=== PATIENT | male | born 1965 | race Caucasian/White ===

== ENCOUNTER 2017-08-21 08:27 | Day surgery (SDC) | payer BC ==
[~2017-08-21] VITALS: Ht 175.3 cm; Wt 127.9 kg
[~2017-08-21 08:27] MED LIST: CEPHALEXIN500 MG PO; FLOMAX0.4 MG PO; IBUPROFEN PM C1 EACH PO; LOSARTAN-HCTZ1 EACH PO; NORCO 5-325 TA1 EACH PO; PERCOCET 10-321 EACH PO; PERCOCET 5-3251 EACH PO; ULTRAM50 MG PO; ZOFRAN ODT8 MG PO
--- NOTE | 2017-08-21 10:35 | NUR ---
08/21/17 Tresa5 Sonia Martins 1032-PATIENT ARRIVED TO PACU ON 2L NC O2 SAT 99% PATIENT REACTIVE TO VOICE. ABDOMEN ROUND AND SOFT. LAYING LEFT LATERAL. RR EVEN
--- NOTE | 2017-08-21 11:52 | NUR ---
CALL LIGHT W/IN REACH. ICED WATER GIVEN. SPOUSE @ BS.
--- NOTE | 2017-08-21 13:27 | NUR ---
LE 1305: PT IS UP TO SITTING ON THE EDGE OF THE BED. PATIENT CONTINUES TO BE DROWSY. PATIENT'S SPOUSE REPORTS THIS IS USUAL FOR HIM UPON AWAKENING. PATIENT STANDS @ THE BS AND IS STEADY ON HIS FEET. DC INSTRUCTIONS ARE GIVEN AND PATIENT AND SPOUSE VERBALIZE UNDERSTANDING. PATIENT IS ASSISTED DRESSED BY HIS SPOUSE AND TOLERATES THAT WELL. PATIENT TRANSFERS HIMSELF TO AND THEN TO PERSONAL VEHICLE AND DOES THAT WELL.
--- NOTE | 2017-08-22 08:34 | OR ---
[facility] [address], [place] [address] Signed DATE OF OPERATION: 08/21/2017 SURGEON: Cristel Miller MD PREOPERATIVE DIAGNOSES: 1. Paternal grandfather with colon cancer in his 70s. 2. Two paternal uncles with colon cancer, one in his 50s and the other in his 60s. POSTOPERATIVE DIAGNOSES: 1. 4 mm polyp at cecum. 2. 4 mm polyp at 12 cm. 3. Internal hemorrhoids. PROCEDURE: Colonoscopy with hot biopsy. ESTIMATED BLOOD LOSS: None. INDICATIONS: Anat is a 52-year-old gentleman asked to see me for colonoscopy. He told me his paternal grandfather had colon cancer in his 70s. He had two uncles with colon cancer, one in his 50s, other in his 60s. Anat himself has no lower GI complaints. I gave Mahesh pamphlet in the office on colorectal polyps and cancer as well as colonoscopy. He understands the nature of the test along with the risks including, but not limited to gas bloating, crampy abdominal pain, bleeding, perforation, requiring surgery, and missed diagnosis. He also understands the need for IV conscious sedation. He had expressed understanding and wished to proceed. PROCEDURE NOTE: Anat was taken into our endoscopy suite and placed in the left lateral decubitus position. He was given IV sedation with 7 mg of Versed and 100 mcg of fentanyl. He was given preoperative clindamycin as well. After this, a digital rectal exam was performed and this was unremarkable. The adult colonoscope was introduced and advanced all around into the cecum under direct visualization of camera without difficulty. His prep was good. He had a few areas of particulate stool matter, I could not quite suction out completely. The scope was slowly withdrawn. The above-mentioned polyps were easily removed with the help of hot biopsy forceps. Once in the rectum, the scope was retroflexed. He does have some small to moderate internal hemorrhoid columns. After this, the gas was suctioned out and the colonoscope removed. Anat tolerated the Electronically Signed By: CRISTEL MILLER MD 08/22/17 0834 PATIENT NAME: ANAT CALDERON OPERATIVE REPORT DATE OF : 69 REPORT #: [id number] PHYSICIAN: CRISTEL MILLER MD PCP: ELENA BELTRAN REPORT IS CONFIDENTIAL AND NOT TO BE RELEASED WITHOUT AUTHORIZATION [address] [place], [place] [address] Signed procedure quite well. RECOMMENDATIONS: I will see Anat back in my office in 7 to 14 days to review his results. MD JESSE Bull/WILBER /[id number] cc: MD Elena Bull PA-C Copies: CRISTEL MILLER MD, ERIKA PAC ~ Electronically Signed By: CRISTEL MILLER MD 08/22/17 0834 PATIENT NAME: ANAT CALDERON OPERATIVE REPORT DATE OF : 69 REPORT #: [id number] PHYSICIAN: CRISTEL MILLER MD PCP: ELENA BELTRAN PAC REPORT IS CONFIDENTIAL AND NOT TO BE RELEASED WITHOUT AUTHORIZATION
== END 2017-08-21 13:10 | disposition home or self-care (01) ==
LOC: OPS 08:27 → DS 08:27 → OPS 09:45 → DS 09:45 → OPS 13:10
PROVIDERS: Colon & Rectal Surgery
PROC: 0DBH8ZZ Excision of Cecum, Via Natural or Artificial Opening Endoscopic (ICD-10-PCS; 2017-08-21)
PROC: 0DBP8ZZ Excision of Rectum, Via Natural or Artificial Opening Endoscopic (ICD-10-PCS; principal; 2017-08-21 09:45)
DX: Z12.11 Encounter for screening for malignant neoplasm of colon (principal); D12.0 Benign neoplasm of cecum; K62.1 Rectal polyp; K64.8 Other hemorrhoids; I10 Essential (primary) hypertension; E66.9 Obesity, unspecified; Z87.891 Personal history of nicotine dependence; Z80.0 Family history of malignant neoplasm of digestive organs; Z68.41 Body mass index [BMI] 40.0-44.9, adult
CPT/HCPCS: 99153; G0500; J2250; J3010; J7120

== ENCOUNTER 2018-07-15 18:39 | Emergency (ER) | payer BC ==
[~2018-07-15] VITALS: Ht 175.3 cm; Wt 126.1 kg
[~2018-07-15 18:39] MED LIST changes: +NORCO 10-325 T1 EACH PO
--- OUTSIDE RECORDS SUMMARY | 2018-07-15 18:42 | XMS ---
PreManage Notification: ANAT CALDERON Security Winder Hand Events No recent Security Events currently on file CRITERIA MET - [facility] PROVIDERS [facility] Treatment Current PHONE: Unknown Karen [place] Serina Current Orthopedic Surgery \T\ Fracture Clinic PHONE: Unknown Fabien has no Care Guidelines for this patient. Jeff VISIT COUNT (12 MO.) Lorraine Babcock TOTAL 1 NOTE: Visits indicate total known visits. ED/UCC VISIT TRACKING (12 MO.) 07/15/2018 18:[address] [facility] [place] TYPE: Emergency COMPLAINT: - L FOOT PAIN INPATIENT VISIT TRACKING (12 MO.) No inpatient visits to display in this time frame [email or web address]
[2018-07-15] MEDS ORDERED: ACETAMINOPHEN-1 EAC1 PO (20:18)
[2018-07-15] MEDS ORDERED: CRUTCH1 EACH (20:19)
== END 2018-07-15 20:33 | disposition home or self-care (01) ==
LOC: ED 18:39
DX: S93.602A Unspecified sprain of left foot, initial encounter (principal); Z87.891 Personal history of nicotine dependence; Z79.899 Other long term (current) drug therapy; X50.1XXA Overexertion from prolonged static or awkward postures, initial encounter
CPT/HCPCS: 73630; 99283

== ENCOUNTER 2021-07-03 08:39 | Inpatient (IN) | payer BC ==
[~2021-07-03] VITALS: Ht 175.3 cm; Wt 140.8 kg
[~2021-07-03 08:39] MED LIST changes: +ACETAMINOPHEN-1 EAC1 PO; +CRUTCH1 EACH; +PROTONIX40 MG PO
[2021-07-03] MEDS ORDERED: SIMVASTATIN20 MG PO ×2 (08:54→13:12)
[2021-07-03] MEDS ORDERED: MELOXICAM15 MG PO (09:55)
--- NOTE | 2021-07-03 13:30 | NUR ---
PATIENT ARRIVED VIA STRETCHER AT 1320 FROM ER. PATIENT'S IS PRESENT IN THE ROOM. PATIENT HAS A LOW GRADE FEVER AND APPEARS TO BE SLEEPY PATIENT WAS GIVEN OPIATES IN THE ER FOR PAIN AND HAS NOT SLEPT IN 3-4 DAYS. PATIENT IS ORIENTED, BUT DROWSY. CHILD NUTRITION MANAGER ARE EQUAL, PETERS, DENIES ANY NUMBNESS OR TINGLING IN EXTREMETIES, OR VS ARE STABLE. PATIENT SAYS HE STILL HAS 7/10 PAIN IN THE RLE WHEN IT IS TOUCHED OR MOVED. PATIENT'S IV'S ARE BOTH FLUSH WELL. PATIENT IS A LITTEL SLOW TO RESPOND AND KEEPS NODDING OFF. PATIENT'S JENNIFER GAVE MOST OF THE ADMIT DATA. CALL LIGHT IS IN REACH.
--- NOTE | 2021-07-03 15:30 | NUR ---
PATIENT RESTING QUIETLY, EYES CLOSED, RESPIRATIONS ARE REGULAR AND EVEN, CALL LIGHT IS IN REACH. AWAITNG ULTRSOUND TO COME FOR RLE.
--- NOTE | 2021-07-03 16:00 | NUR ---
THIS RN CALLED PATIENT KICKING AND YELLING IN PAIN TRYING TO DO LE ULTRA SOUND. ORDER GIVEN BY TO GIVE 2MG SIVP MORPHINE WITH A REPEAT OF 2MG FOR LOWER EXTREMITY PAIN IF NEEDED TO GET ULTRASOUND DONE. THIS RN READ ORDER BACK TO VERIFY.
--- NOTE | 2021-07-03 16:06 | NUR ---
PATIENT HAVING 10/10 RLE PAIN WHEN TOUCHED 2MG SIVP MORPHINE GIVEN AFTER 4MG SIVP ZOFRAN GIVEN TO PREVENT NAUSEA.
--- NOTE | 2021-07-03 16:16 | NUR ---
PATIENT STILL KICKING AND YELLING WHEN TOUCHED BY ULTRASOUND PROBE. 2MG SIVP MORPHINE REPEATED.
--- NOTE | 2021-07-03 16:25 | NUR ---
PATIENT CONTINUES TO KICK AND YELL WHEN TRYING TO USE THE ULTRASOUND PROBE AND REFUSING TO CONTINUE WITH THE PROCEDURE BECAUSE IT HURTS TO MUCH. THIS RN CALLED AND ORDERS GIVEN FOR 1MG IV DILAUDID AND 1MG IV ATIVAN. ORDERS READ BACK BY THIS RN AND CONFIRMED. ORDERS PLACED.
--- NOTE | 2021-07-03 16:39 | NUR ---
PATIENT REMAINS TO PAINFUL TO TOUCH WITH ULTRASOUND PROBE. 1MG SIVP ATIVAN GIVEN FOLLOWED BY 1MG SIVP DILAUDID.
--- NOTE | 2021-07-03 16:45 | NUR ---
CONTINUOUS PULSE OX ON PATIENT SINCE LAST IV MEDS GIVEN. RESPIRATIONS ARE 18/MIN EVEN AND UNLABORED AND O2 SATS 95% ON ROOM AIR. PATIENT SLEEPING QUIETLY AND EQUINE PHARMACOLOGY TECHNICIAN ABLE TO COMPLETE HER EXAM. THIS RN REMAINS IN ROOM TO MONITOR PATIENT.
--- NOTE | 2021-07-03 17:14 | NUR ---
THIS RN CALLED WITH 101.5f AXILLARY TEMP PATIENT IS TOO SLEEPY TO TAKE AN ORAL TEMP AT THIS TIME. ORDERED 650MG TYLENOL SUPPOSITORY FOR THE PATIENT. ORDER PLACED.
--- NOTE | 2021-07-03 17:53 | NUR ---
WROTE NEW ORDERS. PATIENT'S RLE NOW ELEVATED ON PILLOWS AND IV TORADOL HAS BEEN GIVEN. WAS INFORMED BY THIS RN THAT PATIENT HAD NOT YET VOIDED SINCE ARRIVAL AND SHE WASW NOT CONCERNED AT THIS TIME AND WANTS NURSING TO CONTINUE MONITORING FOR NOW. PATIENT'S IS AT BEDSIDE IN THE ROOM WITH PATIENT. PATIENT STILL SLEEPING AFTER IV PAIN MEDS AND IV ATIVAN. RESPIRATIONS ARE REGULAR AND EVEN AND O2 SATS 99% ON 2L/NC. CALL LIGHT IS IN REACH AND BED ALARM IS ON PATIENT HAS NOT GOTTEN OUT OF BED FOR ME YET THIS SHIFT.
--- NOTE | 2021-07-03 18:31 | NUR ---
PATIENT STILL RESTING QUIETLY, EYES CLOSED, WITH 2L/NC AND O2 SATS 99%. PATIENT'S JENNIFER REMAINS AT BEDSIDE. PATIENT'S AXILLARY TEMP DOWN TO 100.8F. THIS RN GAVE SPOUSE TV REMOTE AND CHANNEL GUIDE. PATIENT HAS NO OTHER CARE NEEDS AT THIS TIME. CALL LIGHT IN REACH.
--- NOTE | 2021-07-03 19:25 | NUR ---
BEDSIDE REPORT FROM VISH Grover RN. PT RESTING IN BED DROWSY, PT JENNIFER AT BEDSIDE, PT VERBALIZED IMPROVED PAIN MANAGEMENT, NO NAUSEA, HE RETURNS TO SLEEP WHEN NOT ENGAGED. NO REQUESTS, NOTED CAP RETURN RIGHT TOES WNL/BRISK.
--- NOTE | 2021-07-03 21:44 | EKG ---
[facility] [address] [facility] [place] [address] Signed Sinus rhythm with premature atrial complexes Otherwise normal ECG When compared with ECG of 12-NOV-2017 09:35, premature atrial complexes are now present Confirmed by MARKIE MERRILL MD ([id number]) on 07/03/2021 9:43:49 PM Electronically Signed By: MARKIE MERRILL MD 07/03/21 2144 PATIENT NAME: ANAT CALDERON Electrocardiogram DATE OF : 69 PHYSICIAN: MARKIE MERRILL MD REPORT #: [id number] REPORT IS CONFIDENTIAL AND NOT TO BE RELEASED WITHOUT AUTHORIZATION
--- NOTE | 2021-07-03 22:00 | NUR ---
BLODD DRAWN BY DOMINIC HELMS RN AFTER LAB DECLINED TO ATTEMPT TO COLECT, PT UP TO BATHROOM VOIDED 850ML URINE. HE TOLERATED ACTIVITY WELL. THIS RN INTO PT ROOM HIS TEMP IS NOW NORMALIZED. HE IS NOW ALERT AND ORIENTED AND IN ASKING FOR FOOD, LUNCH BOX ORDERED. PT PROVIDED WITH SPRITE AND APPLESAUCE WHILE WAITING FOR LUNCH BOX. ABX INFUSING WNL, IV SITES WNL. HE IS VERBALIZING WELL.
--- NOTE | 2021-07-03 22:00 | NUR ---
ASSESSED CAP REFILL AND PULSE BILATE FEET STONG PULSES EQUAT BILAT AND BRISK CAP REFILL AT THIS TIME AND AT START OF SHIFT
--- NOTE | 2021-07-03 22:20 | NUR ---
BLOOD DRAWN AND SENT TO LAB
--- NOTE | 2021-07-04 00:34 | NUR ---
PT ON ROOM AIR 99% OXYGEN SATURATION HE CONSUMED 90% OF HIS LUNCH BOX, HE IS NOW SLEEPING. NO DISTRESS NOTED, PEDAL PULSES STRONG CAP REFILL BRISK. FEET ARE WARM AND PINK.
--- NOTE | 2021-07-04 02:38 | NUR ---
CALLED TO REPORT PT TEMP AT 101.1 F. AND INCREASE IN PAIN WITH AMBULATION TO BATHROOM. PT IS ALERT AND ORIETNED, V/S STABLE OTHER THAN TEMP. VOIDED 1600 ML OF URINE IN LAST 8 HOURS, ORDER TO RECHECK CK LAB IN AM AND TORDOL 15MG IV Q8 HOURS PRN, ORDERS PLACED IN COMPUTER RECORD.
--- NOTE | 2021-07-04 02:42 | NUR ---
PATIENT GOT UP TO THE BATHROOM, SBA. PATIENT IS BACK IN BED. PATIENT VOIDED IN THE TOILET UNMEASURED. ICE PACK MADE FOR HIS RIGHT LEG.
--- NOTE | 2021-07-04 03:29 | NUR ---
PT RESTING IN BED ON ROOM AIR, HE REPORTS PAIN 08/14, HAS TEMP 101.1 F., TORDOL 15MG IV PRN ADMINISTERED AT THIS TIME.
--- NOTE | 2021-07-04 04:15 | NUR ---
BED ALARMING. PATIENT GOT UP TO USE THE BATHROOM. SBA. PATIENT IS BACK IN BED. PATIENT C/O PAIN STATED ICE PACK DID NOT HELP. SCHOOL PSYCHOLOGY PROFESSOR NOTIFIED. PRIMARY RN IS ON BREAK. BED ALARM ON FOR SAFETY. SODA PROVIDED PER PATIENT'S REQUEST.
--- NOTE | 2021-07-04 05:39 | NUR ---
PT HAS SLEPT WELL OVER SHIFT, HE IS ALERT TO STAFF CARE AT BEDSIDE. HE IS ORIENTED, HE HAS HAD FULL LUNCH BOX AND MORE SNACKS HE VERBLAIZED CONT HUNGER AND SNACKS HAVE BEEN PROVIDED. HE HAS CONT TO HAVE INTERMITTEN FEVERS, DOWN WITH TYLENOL AND TORDOL. HE REPORTS PAIN IS TOLERABLE WHILE IN BED WITH RIGHT LEG ELEVATED, INCREASE PAIN WITH AMBULATION, FWW IN ROOM TO ASSIST WITH STABILITY AND TO DISTRIBUTE WEIGHT. HE HAS BEEN ORIETNED X3 UNSURE OF DATE. HE IS VOIDING Q.S. PLUS. NO NAUSEA/VOMITING. UPDATED TWICE OVER SHIFT WITH NEW ORDERS. RLE RED AREA OIL CHANGER THIS AM, AND AREA SMALLER. HE IS TOLERATING TOUCH AND ACTIVITY WELL PER PAIN. RLE ELEVATED ON TWO PILLOW. ICE TO RLE WELL INTERMITTEN.
--- NOTE | 2021-07-04 07:30 | NUR ---
THIS RN RECEIVED SHIFT REPORT FROM VIK SALCEDO. PATIENT RESTING QUIETLY SUPINE IN BED WITH RLE ELEVATED ON PILLOWS. RLE PULSES STRONG AND CAPREFILL LESS THAN 3 SECONDS. PATIENT RESTING QUIETLY AND THIS RN DID NOT WAKE HIM. RESPIRATIONS ARE REGULAR AND EVEN. CALL LIGHT IS IN REACH. PATIENT HAS NO CURRRENT CARE NEEDS AT THIS TIME.
--- NOTE | 2021-07-04 10:08 | NUR ---
THIS RN IN TO SEE PATIENT WITH JESSIE BUCHANAN. PATIENT'S VS ARE STABLE AND HE IS AFEBRILE AT THIS TIME. PATIENT'S JENNIFER IS HERE AT BEDSIDE. PATIENT WANTS TO SLEEP AND IS COMMENTING THAT EVERY TIME HE FALLS ASLEEP WE ARE WAKING HIM UP FOR SOMETHING. THIS RN APLOGIZED FOR THIS, BUT ASSURED PATIENT WE WOULD NOT BE BOTHERING HIM IF IT WAS NOT NECESSARY AND PATIENT VERBALIZED UNDERSTANDING. PATIENT RLE PERIPHERAL PULSES AND CAPREFILL ARE NORMAL. PATIENT SAYS HE HAS 5/10 PAIN WHEN STANDING ON HIS RLE, BUT IS EASILY ABLE TO FALL ASLEEP WHEN LEG IS ELEVATED IN BED, WHICH IT IS AT THIS TIME. PATIENT'S LEG IS ALREADY NOT RED IN THE AREA OF THE WOUND OF YESTERDAY. PATIENT'S IS LEAVING FOR A BIT AND SHADES PULLED FOR PATIENT TO SLEEP. CALL LIGHT IS IN REACH.
--- NOTE | 2021-07-04 10:48 | NUR ---
THIS RN TALKED WITH AND LET HER KNOW PATIENT HS NOT VOIDED SO FAR THIS SHIFT AND SHE IS NOT CONCERNED PATIENT VOIDED OVER 2 LITERS ON FURNACE REPAIRER. ALSO INFORMED THAT TELEPHARMACY WOULD NOT APPROVE THE TORADOL ORDER LAST NIGHT WITHOUT A D/C OF MOBIC WHICH WAS A SCHEDULED MEDS. INFORMED THIS RN SHE WOULD ADDRESS IT WHEN SHE SEES THE PATIENT. PATIENT RESTING QUIETLY AT THIS TIME, EYES CLOSED, RESPIRATIONS ARE REGULAR AND EVEN, AND CALL LIGHT IS IN REACH. SAID HE NEEDS TO SLEEP AND SHE IS NOT GOING TO WAKE HIM AT THIS TIME.
--- NOTE | 2021-07-04 11:54 | NUR ---
PATIENT SITTING UP ON THE SIDE OF THE BED EATING LUNCH. PATIENT SAID HE HAS BEEN UP TWICE TO VOID SINCE THE SHIFT CHANGE AND THIS RN ASKED HIM IF HE COULD USE THE URINAL SO STAFF COULD MEASURE HIS OUTPUT AND PATIENT AGREED. PATIENT DENIES THE NEED FOR PAIN MEDS AND DENIES NAUSEA T THIS TIME. CALL LIGHT IS IN REACH AND PATIENT DENIES ANY CARE NEEDS. INFORMED THAT THE PATIENT WAS AWAKE SO SHE COULD SEE HIM KNOW IF SHE WAS READY TO.
--- NOTE | 2021-07-04 13:13 | NUR ---
THIS RN IN TO CHECK ON PATIENT. RLE PAIN IS 5/10 AND PRN IV TORADOL GIVEN. PATIENT IS GOING TO TRY AND SLEEP SOME MORE. PATIENT DENIES ANY CARE NEEDS AT THIS TIME. PATIENT ATE 100% OF HIS LUNCH AND THIS RN TOOK THE TRAY OUT. CALL LIGHT IS IN REACH.
--- NOTE | 2021-07-04 14:25 | NUR ---
THIS RN IN TO CHECK ON PATIENT. PATIENT WAS JUST UP TO THE RESTROOM AND PAIN INCREASED FROM WALKING, BUT WAS BETTER BEFORE HE GOT UP AND WALKED. PATIENT'S LEG ELEVATED ON 2 PILLOWS. PATIENT DENIES ANY CARE NEEDS AT THIS TIME. CALL LIGHT ROSALINA LINDO AND IS AT BEDSIDE.
--- NOTE | 2021-07-04 16:01 | NUR ---
Call light answered, pt ambulated to BR to void. Linens changed. Manuela in the room. No needs at this time, call light in reach.
--- NOTE | 2021-07-04 16:24 | NUR ---
PATIENT IS RESTING ON HIS LEFT SIDE WITH RLE ELEVATED. PATIENT IS COMFORTABLE AND HAS BEEN SLEEPING. PATIENT HAS NEW LINENS ON HIS BED. PATIENT'S SPOUSE REMAINS IN THE BEDSIDE ARMCHAIR AT BEDSIDE. CALL LIGHT IS IN REACH.
--- NOTE | 2021-07-04 17:56 | NUR ---
PATIENT HS HAD A GOOD DAY. PATIENT RECEIVED TORADOL IV ONCE TODAY WITH GOOD RELIEF. PATIENT IS EATING EVERYTHING THAT IS BROUGHT TO HIM. RLE PULSES ARE STRONG AND CAPREFILL REMAINS LESS THAN 3 SECONDS. PATIENT HAS BEEN ALERT AND ORIENTED WHEN AWAKEBUT HAS TAKEN MULTIPLE NAPS TODAY. PATIENT VOIDING QUANTITY SIFFICIENT AND IS INDEPENDENT IN THE ROOM. PATIENT IS RESTING IN BED WATCHING TV AT THIS TIME. CALL LIGHT IS IN REACH AND HAS NO CURRENT NURSING CARE NEEDS.
--- NOTE | 2021-07-04 19:30 | NUR ---
BEDSIDE REPORT FROM VISH Grover RN, PT RESTING IN BED ALERT TO STAFF KNOCKED ON DOOR, PT REPORTS PT VERBALIZED "I AM FEELING A LITTLE BETTER, BUT I AM JUST SO TIRED" GAVE EDUCATION TO PT ABOUT INFECTION PROCESS AND CARE PLAN. PT REQUESTED SPRITE, SHAST SPRITE GIVEN AT THIS TIME.
--- NOTE | 2021-07-04 21:05 | NUR ---
PT ADMINISTERED TORDOL FOR PAIN 5/10 AT RLE. HE IS DROWSY BUT ALERT TO STAFF IN ROOM, HIS IS AT BEDSIDE, UPDATED SPOUSE AND PT ON PLAN OF CARE AND TREATMENTS WELL IMPROVEMENT OF LABS. NO FURTHER QUESTIONS AT THIS TIME, PT RLE ON 2 PILLOWS ALSO TIPPED FOOT OF BED UP SO THAT RIGHT FOOT IS AT HEART LEVEL. ICE PACK PLACED TO WOUND AREA WITH WASH CLOTH BARRIER TO SKIN, V/S COMPLETE AND ASSESSMENT DONE.
--- NOTE | 2021-07-04 22:10 | NUR ---
PT UP TO BATHROOM INDEPENDENTLY, BACK TO BED HE REPORTS HE FEELS VERY WARM FROM STRUGGLINGTO GET OUT OF BED, BED HAD BEEN IN POSITION WITH LEGS UP FULL AMOUNT WITH TWO PILLOWS TO ELEVATE RIGHT LEG. PT PROVIDED A PERSONAL SMALL FAN BATTERY OPERATED THAT WILL NOW BE HIS TO TAKE HOME. HE REPORTS THIS IS VERY NICE. PT IS AFEBRILE, NO OTHER CONCERNS OR REQUESTS.
--- NOTE | 2021-07-04 23:00 | NUR ---
bedside small fan provided. no other needs at this time.
--- NOTE | 2021-07-05 02:26 | NUR ---
PT RESTING IN BED DROWSY, ROUNDING PT JUST BACK TO BED AFTER VOIDING, HE HAS NO REQUESTS OR CONCERNS AT THIS TIME. VOIDED 900ML CLEAR YELLOW URINE
--- NOTE | 2021-07-05 04:43 | NUR ---
PT HAS SLEPT WELL OVER SHIFT, HE HAS BEEN AFEBRILE, V/S STABLE, ADMINISTERED TORDOL ONCE. CONT. IMPROVEMENT AT RLE, REDNESS/TEMP/PAIN. BOWEL REGIME ORDER PERPROTOCOL HE HAS NOT HAD BM SINCE ADMISSION, HIS ACTIVITY CONSISTS OF AMBULATING TO BATHROOM WITH SBA/INDEPENDENT. CONT. CARE PLAN, NO OTHER NEW CONCERNS THIS SHIFT.
--- NOTE | 2021-07-05 06:48 | NUR ---
PT RESTING QUIETLY IN BED THIS AM, V/S STABLE AFEBRILE OVER SHIFT, NO NEW CONCERNS, NO REQUESTS THIS AM, PT HAS SLEPT WELL, STILL FEELS DROWSY
--- NOTE | 2021-07-05 07:30 | NUR ---
PATIENT RESTING QUIETLY IN BED, EYES CLOSED, RESPIRATIONS ARE REGULAR AND EVEN, CALL LIGHT IN REACH. PATIENT HAS NO NURSING CARE NEEDS AT THIS TIME.
--- NOTE | 2021-07-05 09:35 | NUR ---
PT IS LAYING IN BED RESTING. I&O AND VS CHARTED CALL LIGHT WITHIN REACH NO FURTHER TASKS AT THIS TIME
--- NOTE | 2021-07-05 10:06 | NUR ---
PATIENT SLEEPING WHEN THIS RN CAME IN WITH DYNAMICIST JET. PATIENT WANTING TO SLEEP, BUT HAVING 6/10 RLE PAIN AND SIVP TORADOL GIVEN WITH AM MEDS. BOTH IV'S WNL. SHADES DRAWN AT PATIENT REQUEST. CALL LIGHT IN REACH. RLE ELEVATED ON PILLOWS AND PULSES AND CAPREFILL IN THE RIGHT FOOT WNL.
--- NOTE | 2021-07-05 12:21 | NUR ---
THIS RN IN WITH NURSING STUDENTS AND NEW MAIN IV BAG HUNG. IV SITE WNL. PATIENT UP TO THE BATHROOM INDEPENDENTLY AND THEN TO THE BEDSIDE ARMCHAIR. PATIENT'S LUNCH SET UP FOR HIM AND HE IS EATING RLE PAIN 3/10 AT THIS TIME AND HE DENIES THE NEED FOR ANY PAIN MEDICATION. CALL LIGHT IN REACH AND PATIENT HAS NO OTHER CARE NEEDS AT THIS TIME.
--- NOTE | 2021-07-05 12:37 | NUR ---
PT ASLEEP, DID NOT DISTURB. WILL CHECK BACK
[2021-07-05] MEDS ORDERED: CLINDAMYCIN HC300 MG PO (12:43)
--- NOTE | 2021-07-05 13:12 | NUR ---
PATIENT'S IS HERE AND HAVING LUNCH WITH PATIENT. IS DISCHARGING PATIENT HOME TODAY, SO PAPERWORK IS BEING PROCESSED FOR DISCHARGE. CALL LIGHT IS IN REACH.
--- NOTE | 2021-07-05 13:40 | NUR ---
LEFT WRIST AND RIGHT A/C IV'S D/C'D WITH CATHETERS INTACT.
--- NOTE | 2021-07-05 14:09 | NUR ---
PATIENT'S VS ARE STABLE AND IV'S WERE DC'D INTACT. AND PATIENT VERBALIZED UNDERSTANDING TO ALL DC INSTRUCTIONS AND F/U INSTRUCTIONS. PHARMACIST HAS ALREADY TALKED TO THE PATIENT. DC INSTRUCTIONS SIGNED AND PATIENT LEFT THE UNIT IN WC WITH JESSIE ALVARENGA TO HIS PRIVATE CAR WITH DRIVING.
== END 2021-07-05 13:09 | disposition home or self-care (01) | DRG 603 ==
LOC: ED 08:39 → MS 12:03
PROVIDERS: ADMIT Internal Medicine; ATTEND Internal Medicine
DX: L03.115 Cellulitis of right lower limb (principal); Z20.822 Contact with and (suspected) exposure to COVID-19; I10 Essential (primary) hypertension; Z72.820 Sleep deprivation; Z98.890 Other specified postprocedural states; Z79.899 Other long term (current) drug therapy
CPT/HCPCS: 36415; 70450; 70496; 70498; 71045; 80048; 80053; 80202; 81001; 82553; 83605; 85025; 86140; 87502; 93005; 93010; 93971; 97161; A9270; C9803; J0692; J1170; J1650; J1885; J2060; J2270; J2405; J3370; J3480; J7030; J7060; U0003

== ENCOUNTER 2023-10-15 02:19 | Emergency (ER) | payer OTHER, BC ==
[~2023-10-15] VITALS: Ht 175.3 cm; Wt 134.0 kg
[~2023-10-15 02:19] MED LIST changes: +CLINDAMYCIN HC300 MG PO; +MELOXICAM15 MG PO; +SIMVASTATIN20 MG PO
[2023-10-15] MEDS ORDERED: fentaNYL citrate 100 MCG/2 ML VIAL IV ONE (02:45)
[2023-10-15] MEDS ORDERED: ondansetron HCL 4 MG/2 ML VIAL IV ONE (02:45)
[2023-10-15 03:13] LABS: BASOPHILS 0.9 % (0-2); EOSINOPHILS 2.9 % (0-6); HEMATOCRIT 37.9 % (35.0-50.0); HEMOGLOBIN 13.1 g/dL (12.0-18.0); LYMPHOCYTES 25.5 % (24-44); MCH 30.4 (27-36); MCHC 34.5 g/dl (30-36); MCV 88.2 fl (81-99); MONOCYTES 7.5 % (0-12); NEUTROPHILS 63.2 % (39-80); PLATELET COUNT 206 K/uL (140-440); RBC 4.29 M/ul (4.3-5.7)
[2023-10-15 03:28] LABS: ALBUMIN 3.5 g/dL (3.4-5.0); ALBUMIN/GLOBULIN RATIO 1.03 (1.1-2.4); ALCOHOL, MEDICAL <3 ng/dL (<3); ALKALINE PHOSPHATASE 78 U/L (46-116); ALT (SGPT) 34 U/L (14-59); ANION GAP 12.3 (7-21); AST (SGOT) 25 U/L (15-37); BILIRUBIN, TOTAL 0.5 ng/dL (0.2-1.0); BUN/CREATININE RATIO 13.63 (6.0-28.6); CALCIUM 8.6 mg/dL (8.5-10.1); CARBON DIOXIDE 27 mmol/L (21-32); CHLORIDE 103 mmol/L (98-107); CREATININE, SERUM 1.32 mg/dL (0.70-1.30); GLOMERULAR FILTRATION RATE,EST 63 mL/min (>60); POTASSIUM 3.3 mmol/L (3.5-5.1); PROTEIN, TOTAL 6.9 g/dL (6.4-8.2); UREA NITROGEN 18 mg/dL (7-18)
[2023-10-15] MEDS ORDERED: KETOROLAC TROMETHAMINE 15 MG/ML VIAL IV ONE (04:00)
[2023-10-15] MEDS ORDERED: HYDROCODON-ACE1 EA10 PO (04:20)
[2023-10-15] MEDS ORDERED: HYDROCODONE BIT/ACETAMINOPHEN 5/325 MG 1 TAB HOME.PACK PO ONE (04:30)
[2023-10-15 05:15] VITALS: BP 161/89
== END 2023-10-15 05:15 | disposition home or self-care (01) ==
LOC: ED 02:19
PROVIDERS: Internal Medicine
DX: S92.341A Displaced fracture of fourth metatarsal bone, right foot, initial encounter for closed fracture (principal); S00.01XA Abrasion of scalp, initial encounter; M89.9 Disorder of bone, unspecified; I10 Essential (primary) hypertension; V09.9XXA Pedestrian injured in unspecified transport accident, initial encounter; Z79.899 Other long term (current) drug therapy
CPT/HCPCS: 36415; 70450; 72125; 73560; 73630; 80053; 80307; 85025; 96374; 96375; 99284-25; A9270; G0480; J1885; J2405; J3010